=== PATIENT | male | born 1950 | race Caucasian/White ===

== ENCOUNTER → 2021-02-27 | Outpatient (CLI) | payer MEDICARE | LOC: KOH-I 10:25 | DX: J18.9 Pneumonia, unspecified organism (principal); R91.1 Solitary pulmonary nodule | CPT/HCPCS: 71046 ==

== ENCOUNTER → 2021-03-01 | Outpatient (CLI) | payer MEDICARE | LOC: KOH-I 09:01 | DX: R93.89 Abnormal findings on diagnostic imaging of other specified body structures (principal) | CPT/HCPCS: 71046 ==

== ENCOUNTER → 2021-08-09 | Outpatient (CLI) | payer MEDICARE | LOC: KOH-I 08-07 13:00 | DX: M79.605 Pain in left leg (principal); M79.604 Pain in right leg; M51.16 Intervertebral disc disorders with radiculopathy, lumbar region | CPT/HCPCS: 72148 ==

== ENCOUNTER → 2021-09-20 | Outpatient (CLI) | payer MEDICARE | LOC: EXRD 14:49 | DX: U07.1 COVID-19 (principal) | CPT/HCPCS: 71046 ==